=== PATIENT | male | born 1980 | race American Indian/Alaskan Native ===

== ENCOUNTER 2016-11-16 21:05 | Emergency (ER) | payer OTHER ==
[2016-11-16 22:22] VITALS: BP 107/56
--- NOTE | 2016-11-17 00:59 | Emergency Department Report ---
HPI - General Chief Complaint: Sore Throat Time Seen by Provider: 11/17/16 00:54 - HPI HPI: 36-year-old male presents today with sore throat 3 days. Positive for painful swallowing and bilateral ear ache. Patient also complains of mild headache that comes and goes. Denies sick contacts. Denies fever, chills, nausea, vomiting, chest pain, shortness of breath, abdominal pain, cough and congestion. Patient has not taken any medication for symptomatic relief. ED Past Medical Hx - Past Medical History Previous Medical History?: No - Surgical History Past Surgical History?: No - Social History Smoking Status: Never Smoker Substance Use Type: Alcohol, Marijuana - Medications Home Medications: Home Medications Medication Instructions Recorded Confirmed Last Taken Type Amoxicillin [Amoxicillin TAB] 875 mg PO BID #20 tablet 11/17/16 Unknown Rx Lidocaine Viscous 2% 15 ml MM TID #100 ml 11/17/16 Unknown Rx ED Review of Systems ROS: Stated complaint: THROAT PAIN Other details as noted in HPI Constitutional: denies: chills, fever, malaise Eyes: denies: eye pain ENT: ear pain, throat pain. denies: congestion Respiratory: denies: cough, shortness of breath, wheezing Cardiovascular: denies: chest pain, palpitations Endocrine: no symptoms reported Gastrointestinal: denies: abdominal pain, nausea, vomiting Skin: denies: rash Neurological: headache. denies: weakness Physical Exam - Physical Exam Vital Signs: Vital Signs 11/16/16 22:17 Temperature 99.3 F Pulse Rate 59 L Respiratory 16 Rate Blood Pressure 107/56 O2 Sat by Pulse 99 Oximetry Physical Exam: GENERAL: The patient is well-developed and well-nourished. Patient is in NAD. HEAD: Normocephalic. Atraumatic. EYES: PERRL. EARS: External auditory canals and tympanic membranes clear; hearing grossly intact. NOSE: Normal nasal mucosa with no nasal discharge. THROAT: Positive for erythema, tonsillomegaly with tonsillar exudates. NECK: Positive for anterior cervical lymphadenopathy. CHEST/LUNGS: Clear to auscultation throughout. HEART/CARDIOVASCULAR: Regular rate and rhythm. ABDOMEN: Abdomen is soft, nontender. No guarding or rebound tenderness. EXTREMITIES: Peripheral pulses intact. Capillary refill less than 2 seconds. NEURO: Alert and oriented x 3. Normal gait. ED Course Vital Signs 11/16/16 22:17 Temperature 99.3 F Pulse Rate 59 L Respiratory 16 Rate Blood Pressure 107/56 O2 Sat by Pulse 99 Oximetry ED Medical Decision Making - Lab Data Vital Signs 11/16/16 22:17 Temperature 99.3 F Pulse Rate 59 L Respiratory 16 Rate Blood Pressure 107/56 O2 Sat by Pulse 99 Oximetry - Medical Decision Making 36-year-old male presents today with sore throat 3 days. His rapid strep test is negative. The patient is positive for tonsillar exudates, anterior cervical lymphadenopathy and no cough. Patient is in no acute distress at this time. He will be discharged home and is encouraged to follow up with a primary care provider. He will be sent home on amoxicillin and viscous lidocaine and is encouraged to return to the emergency room for any worsening symptoms. Critical care attestation.: If time is entered above; I have spent that time in minutes in the direct care of this critically ill patient, excluding procedure time. ED Disposition Clinical Impression: Pharyngitis Qualifiers: Pharyngitis/tonsillitis etiology: unspecified etiology Qualified Code(s): J02.9 - Acute pharyngitis, unspecified Disposition: DISCHARGED TO HOME OR SELFCARE Is pt being admited?: No Does the pt Need Aspirin: No Condition: Stable Instructions: Pharyngitis (ED), Strep Throat (ED) Additional Instructions: Follow-up with primary care provider. Return to the emergency department if symptoms worsen. Prescriptions: Amoxicillin [Amoxicillin TAB] 875 mg PO BID #20 tablet Lidocaine Viscous 2% 15 ml MM TID #100 ml Referrals: PRIMARY CARE [Primary Care Provider] - 3-5 Days [facility] [Outside] - 3-5 Days Forms: Work/School Release Form(ED) Time of Disposition: 01:49
== END 2016-11-17 02:28 | disposition home or self-care (01) ==
LOC: ED 21:05
DX: J02.9 Acute pharyngitis, unspecified (principal); R51 Headache; H92.03 Otalgia, bilateral; F12.10 Cannabis abuse, uncomplicated
CPT/HCPCS: 87116; 87430; 99282